=== PATIENT | male | born 1985 | race Caucasian/White ===

== ENCOUNTER 2021-01-20 06:18 | Inpatient (IN) | payer OTHER ==
[~2021-01-20] VITALS: Ht 177.8 cm; Wt 60.6 kg
[2021-01-20 06:30] LABS: Calcium, Ionized (POC) 0.99 mmol/L (1.10-1.46); Chloride (POC) 83 mmol/L (98-108); Glucose (ISTAT POC) >700 mg/dL (70-99); Hemoglobin (POC) 13.3 g/dL (13.5-17.5); Potassium (POC) 8.8 mmol/L (3.5-5.5); Sodium (POC) 106 mmol/L (135-148); Total CO2 (POC) 7 mmol/L (21-32)
[2021-01-20 06:53] LABS: Hematocrit 37.9 % (37.0-53.0); Hemoglobin 10.7 g/dL (13.5-17.5); Mean Corpuscular HGB Conc 28.2 g/dL (31.5-36.5); Mean Corpuscular Volume 110 fL (80-100); Mean Platelet Volume 10.4 fL (9.1-12.4); Platelet Count 509 K/mm3 (150-400); Red Blood Cell Count 3.45 M/mm3 (4.30-5.90); White Blood Cell Count 35.54 K/mm3 (4.00-11.30)
[2021-01-20 07:21] LABS: BAND PERCENT MAN 2 % (0-8); BASOPHILS PERCENT MAN 0 % (0-2); EOSINOPHILS PERCENT MAN 0 % (0-6); LYMPHOCYTES ABSOLUTE MAN 1.77 K/mm3 (0.84-5.20); LYMPHOCYTES PERCENT MAN 5 % (21-46); METAMYELOCYTE ABSOLUTE MAN 0.71 K/mm3 (0.00-0.00); METAMYELOCYTE PERCENT MAN 2 % (0-0); MONOCYTES ABSOLUTE MAN 0.35 K/mm3 (0.16-1.47); MONOCYTES PERCENT MAN 1 % (4-13); NEUTROPHILS ABSOLUTE MAN 32.69 K/mm3 (1.96-9.15); SEG NEUTROPHILS PERCENT MAN 90 % (41-73); TOTAL CELLS COUNTED 100
[2021-01-20 08:21] LABS: Glucose, Blood 1371 mg/dL (70-99)
[2021-01-20 08:21] LABS: Albumin, Blood 2.2 g/dL (3.4-5.0); Albumin/Globulin Ratio 0.6 (0.8-1.8); Bilirubin, Total 0.9 mg/dL (0.1-1.0); Bun/Creatinine Ratio 25.9 (12.0-20.0); Calcium, Blood 7.7 mg/dL (8.5-10.1); Creatinine, Blood 1.93 mg/dL (0.60-1.20); Potassium, Blood 6.9 mmol/L (3.5-5.5); Total Protein, Blood 6.2 g/dL (6.4-8.2)
[2021-01-20 08:26] LABS: Base Excess Venous -27.3 mmol/L; Bicarbonate Venous 6.9 mmol/L (24.0-30.0)
[2021-01-20 08:27] LABS: PCO2 Venous 22.8 mmHg (38-42); pH Blood Venous 6.94 (7.34-7.37)
[2021-01-20 09:46] LABS: Percent Saturation 9.3 % (20.0-50.0)
[2021-01-20 10:07] LABS: Source, Urine Voided
[2021-01-20 10:37] LABS: Appearance, Urine Clear (Clear); Bilirubin, Urine Neg (Neg); Blood, Urine 1+ (Neg); Color, Urine Yellow (P-Yellow); Glucose Qualitative, Urine 4+ (Neg); Ketones, Urine 3+ (Neg); Leukocyte Esterase, Urine Neg (Neg); Nitrite, Urine Neg (Neg); Protein, Urine 2+ (Neg); Specific Gravity, Urine 1.015 (1.003-1.022); Urobilinogen, Urine NORM (Normal)
[2021-01-20 11:03] LABS: Bacteria Not Seen /hpf; Red Blood Cells, Urine 0-2 /hpf (0-2); Squamous Epithelial Cells Rare /hpf (Few); White Blood Cells, Urine Not Seen /hpf (0-5)
[2021-01-20 11:22] LABS: Hematocrit 28.7 % (37.0-53.0); Hemoglobin 9.8 g/dL (13.5-17.5)
[2021-01-20 11:25] LABS: Glucose, Blood 1029 mg/dL (70-99)
[2021-01-20 11:57] LABS: Bun/Creatinine Ratio 27.3 (12.0-20.0); Calcium, Blood 7.9 mg/dL (8.5-10.1); Creatinine, Blood 1.61 mg/dL (0.60-1.20)
[2021-01-20 12:37] LABS: U Amphetamine Screen DETECTED; U Barbituate Screen Not Detected; U Benzodiazapine Screen Not Detected; U Buprenorphine Screen Not Detected; U Cannabinoids Screen DETECTED; U Cocaine Screen Not Detected; U Methadone Screen Not Detected; U Methamphetamine Screen DETECTED; U Opiates Screen Not Detected; U Oxycodone Screen Not Detected; U Phencyclidine Screen Not Detected; U Propoxyphene Screen Not Detected
[2021-01-20] MEDS ORDERED: INSULANI SC (13:42)
[2021-01-20] MEDS ORDERED: HUMALOG KW100 UNIT/1 SC (13:43)
[2021-01-20 13:53] LABS: Adenovirus Not Detected (NOT DETECT); Bordetella pertussis Not Detected (NOT DETECT); Chlamydophila pneumoniae Not Detected (NOT DETECT); Coronavirus 229E Not Detected (NOT DETECT); Coronavirus HKU1 Not Detected (NOT DETECT); Coronavirus NL63 Not Detected (NOT DETECT); Coronavirus OC43 Not Detected (NOT DETECT); Human Metapneumovirus Not Detected (NOT DETECT); Human Rhinovirus/Enterovirus Not Detected (NOT DETECT); Influenza A/2009-H1 Not Detected (NOT DETECT); Influenza A/H1 Not Detected (NOT DETECT); Influenza A/H3 Not Detected (NOT DETECT); Influenza B Not Detected (NOT DETECT); Mycoplasma pneumoniae Not Detected (NOT DETECT); Parainfluenza Virus 1 Not Detected (NOT DETECT); Parainfluenza Virus 2 Not Detected (NOT DETECT); Parainfluenza Virus 3 Not Detected (NOT DETECT); Parainfluenza Virus 4 Not Detected (NOT DETECT); Respiratory Syncytial Virus Not Detected (NOT DETECT); SARS-Cov-2 (COVID-19), BioFire Not Detected (NOT DETECT)
--- NOTE | 2021-01-20 14:15 | NUR ---
ASSUMED CARE OF PT PT ARRIVES FROM ED. ABLE TO TRANSFER SELF ON TO ICU BED. WEIGHT OBTAINED. PT CURRENTLY ON RA. PT DENIES PAIN UPON ARRIVAL. HARSH PRODUCTIVE COUGH AND DRY HEAVING NOTED. PT. RESTLESS IN BED. DENIES PAIN AT THIS TIME. PT. PULLS BLANKETS OVER HIS HEAD AND ONLY ANSWERING MINIMAL QUESTIONS. REFUSING TO ANSWER MEDICAL HISTORY QUESTIONS. INSULIN GTT INFUSING AT 7U/HR UPON ARRIVAL. BG CHECKED AND INSULIN TITRATED DOWN TO 3U/HR. PT. HAS NS INFUSING AT 350 ML/HR. EMEIS BAG PROVIDED. PT. CALL LIGHT IN REACH, BED IN LOW POSITION. ASKED PT TO CALL BEFORE ATTEMPTING TO GET OOB DUE TO CORDS ADN LINES.
[2021-01-20 15:34] LABS: Anion Gap 9 mmol/L (6-16); Blood Urea Nitrogen 38 mg/dL (8-24); Bun/Creatinine Ratio 29.2 (12.0-20.0); CO2, Blood 22 mmol/L (21-32); Calcium, Blood 7.8 mg/dL (8.5-10.1); Chloride, Blood 106 mmol/L (98-108); Glomerular Filtration Rate >60 (60-); Glucose, Blood 325 mg/dL (70-99); Potassium, Blood 4.4 mmol/L (3.5-5.5); Sodium, Blood 137 mmol/L (136-145)
--- NOTE | 2021-01-20 16:09 | NUR ---
DR. WILDER IN TO EVAL PT. PLANS TO TRANSITION PT TO SUB Q INSULIN. PT. STILL ONLY ANSWERING SOME QUESTIONS AND COVERS FACE WITH BLANKETS. VSS.
--- NOTE | 2021-01-20 16:36 | NUR ---
PT ONLY WAKING BRIEFLY TO ANSWER QUESTIONS WITH 1-2 WORD ANSWERS AND GOING BACK TO SLEEP. TURKEY SANDWHICH PROVIDED FOR PT PER REQUEST, BUT PT REFUSING TO EAT AT THIS TIME. PT. REMAINS ON INSULIN GTT, TRANSITIONED FLUIDS TO D5 1/2 NS AT 150ML/HR UNTIL PT EATING. VSS.
--- NOTE | 2021-01-20 18:24 | NUR ---
PT FRANTIC IN BED PULLING AT CORDS AND LINES, CRYING, STATING "I HAVE TO PEE NOW AND DONT WANT TO PEE MY PANTS", ASSISTED PT TO BEDSIDE TO VOID USING URINAL. PT ASSISTED BACK TO BED, STATES, "I DONT WANT TO EAT, IM NOT HUNGRY". ENCOURAGED PT TO EAT, SET PT TRAY UP AND PT FOUND SOME ALTERNATIVES PT WILLING TO EAT. LONG ACTING INSULIN TO BE GIVEN IF PT EATS AND TRANSITIONED OFF OF INSULIN GTT.
--- NOTE | 2021-01-20 18:43 | NUR ---
SHIFT SUMMARY PT. REMAINS ON INSULIN GTT AT THIS TIME. TITRATED PER. ORDER. PT. GAP CLOSED AND PT REFUSING TO EAT AT THIS TIME. D5 1/2 NS STARTED. LONG ACTING INSULIN AND MED SS COVERAGE ORDERED FOR WHEN PT IS ABLE TO EAT. PT COVERS HEAD WITH BLANKETS AND GOES TO SLEEP. VSS. CALL LIGHT IN REACH.
[2021-01-20 19:33] LABS: Anion Gap 7 mmol/L (6-16); Blood Urea Nitrogen 30 mg/dL (8-24); Bun/Creatinine Ratio 29.4 (12.0-20.0); CO2, Blood 25 mmol/L (21-32); Calcium, Blood 7.9 mg/dL (8.5-10.1); Chloride, Blood 109 mmol/L (98-108); Creatinine, Blood 1.02 mg/dL (0.60-1.20); Glomerular Filtration Rate >60 (60-); Glucose, Blood 241 mg/dL (70-99); Potassium, Blood 4.5 mmol/L (3.5-5.5); Sodium, Blood 141 mmol/L (136-145)
--- NOTE | 2021-01-20 20:00 | NUR ---
ASSESSMENT/ASSUMED CARE PT LAYING IN BED WITH BLANKET OVER HEAD. UNCOVERED HEAD AND ANSWERING QUESTIONS BRIEFLY. COVERS HEAED BACK UP AFTER ASSESSMENT. DENIES PAIN. LUNGS CLEAR DECREASED IN TH BASES ON ROOMAIR. RESP EVEN AND NONLABORED. DENIES SOB OR COUGH. HEART RATE TACHY IN THE LOW 100'S. BP STABLE. BT+. DINNER TRAY AT BEDSIDE. PT STATES,"I'M GOING TO EAT IT BUT NOT RIGHT NOW". DENIES N/V. IV 20G TO RIGHT FOREARM AND LEFT FOREARM WITH D5 1/2 NS AT 150 ML/HR AND INSULIN AT 2 UNITS/HR. BLOOD GLUCOSE 239. NO EDEMA. PT MOVING SELF AROUND IN BED.
[2021-01-20] MEDS ORDERED: ALBU90OI INH (21:00)
--- NOTE | 2021-01-20 21:09 | NUR ---
CALL TO MD CALL OUT TO DR PAYTON REGARDING COUGH AND PAIN TO CHEST WITH COUGH. PT REQUESTING ALBUTEROL INLH, RT GAVE. TEMP DOWN 99.2. PT EATING SANDWICH.
--- NOTE | 2021-01-20 21:30 | NUR ---
LONG ACTING INSULIN PT ATE ONE SANDWICH AND IS WORKING ON SECOND. BLOOD GLUCOSE 216, 35 UNITS LONG ACTING INSULIN GIVEN. CONT INSULIN GTT FOR NEXT TWO HOURS THAN STOP INSULIN.
--- NOTE | 2021-01-20 23:36 | NUR ---
REASSESSMENT PT RESTING QUIELTY. MOVING AND TURNING SELF IN BED. TEMP 99.3. LUNGS CLEAR BUT DECREASED ON ROOMAIR. NO COUGH AFTER GUAIFENESIN GIVEN. HEART RATE CONT LOW 100'S. BLOOD GLUCOSE 144. STOPPED INSULIN GTT AND D5 1/2. IV'S SALINE LOCKED. VSS. PT TO CHANGE TO MEDICAL FLOOR STATUS.
[2021-01-21 03:12] LABS: BASOPHILS ABSOLUTE AUTO 0.08 K/mm3 (0.00-0.23); BASOPHILS PERCENT AUTO 0 % (0-2); EOSINOPHILS ABSOLUTE AUTO 0.07 K/mm3 (0.00-0.68); EOSINOPHILS PERCENT AUTO 0 % (0-6); Hematocrit 31.7 % (37.0-53.0); Hemoglobin 10.9 g/dL (13.5-17.5); IMMATURE GRAN ABSOLUTE AUTO 0.24 K/mm3 (0.00-0.10); IMMATURE GRAN PERCENT AUTO 1 % (0-1); LYMPHOCYTES ABSOLUTE AUTO 2.17 K/mm3 (0.84-5.20); LYMPHOCYTES PERCENT AUTO 9 % (21-46); MONOCYTES ABSOLUTE AUTO 1.43 K/mm3 (0.16-1.47); MONOCYTES PERCENT AUTO 6 % (4-13); Mean Corpuscular HGB 30.2 pg (26.0-34.0); Mean Corpuscular HGB Conc 34.4 g/dL (31.5-36.5); Mean Platelet Volume 8.6 fL (9.1-12.4); NEUTROPHILS ABSOLUTE AUTO 19.64 K/mm3 (1.96-9.15); NEUTROPHILS PERCENT AUTO 83 % (41-73); Platelet Count 419 K/mm3 (150-400); RDW Standard Deviation 38.5 fL (35.1-46.3); Red Blood Cell Count 3.61 M/mm3 (4.30-5.90); White Blood Cell Count 23.63 K/mm3 (4.00-11.30)
[2021-01-21 03:15] LABS: Mean Corpuscular Volume 88 fL (80-100)
[2021-01-21 03:40] LABS: Alanine Aminotransfer (ALT/SGP 53 U/L (12-78); Albumin, Blood 2.1 g/dL (3.4-5.0); Albumin/Globulin Ratio 0.6 (0.8-1.8); Alk Phos 164 U/L (50-136); Anion Gap 6 mmol/L (6-16); Aspartate Aminotrans (AST/SGOT 38 U/L (12-37); Bilirubin, Total 0.2 mg/dL (0.1-1.0); Blood Urea Nitrogen 25 mg/dL (8-24); Bun/Creatinine Ratio 25.1 (12.0-20.0); CO2, Blood 25 mmol/L (21-32); Calcium, Blood 7.8 mg/dL (8.5-10.1); Chloride, Blood 110 mmol/L (98-108); Globulin, Blood 3.6 g/dL (2.2-4.0); Glomerular Filtration Rate >60 (60-); Glucose, Blood 267 mg/dL (70-99); Sodium, Blood 141 mmol/L (136-145); Total Protein, Blood 5.7 g/dL (6.4-8.2)
--- NOTE | 2021-01-21 03:55 | NUR ---
CALL TO MD CALL TO DR CM WITH PHOS 2.0, OBTAINED ORDER FOR SODIUM PHOS 10 MMOL IV TIMES ONE.
--- NOTE | 2021-01-21 06:06 | NUR ---
SHIFT SUMMARY PT RESTING QUIELTY. PT ATE LAST NIGHT AND WAS ABLE TO TAKE LONG ACTING INSULIN. INSULIN GTT STOP 2 HOURS AFTER LONG ACTING INSULIN ALONG WITH D5 1/2. TEMP 100.2 DURING THE NIGHT PT MED WITH TYLENOL WITH GOOD RESULTS. VSS. PT UP TO SHOWER DURING THE NIGHT. GAIT STEADY. MED WITH GUAIFENESIN WITH CODIENE FOR COUGH WITH GOOD RESULTS. CHANGED TO MEDICAL FLOOR STATUS. REPLACEMENT OF SODIUM PHOS INFUSING. REPORT TO ON COMING NURSE
--- NOTE | 2021-01-21 08:28 | NUR ---
ASSUMED CARE PT. ALERT AND ORIENTED THIS AM. SITTING UP IN BED EATING BREAKFAST. PT. DENIES PAIN THIS AM, HOWEVER REQUESTED MEDICATION FOR COUGH. PT CONTINUES WITH HARSH PRODUCTIVE COUGH. ON RA THIS AM. DR. WILDER AT BEDSIDE THIS AM. PLANS TO CONTINUE IV ANTIBIOTICS TODAY THEN HOME TOMORROW. PT. COOPERATIVE WITH CARE AT THIS TIME. NADN. DUMONT.
--- NOTE | 2021-01-21 12:26 | NUR ---
PT UP IN ROOM AD BRENNA. VSS. PT ON PHONE W/ FAMILY T/O DAY. INDEPENDENT IN ROOM.
--- NOTE | 2021-01-21 17:22 | NUR ---
SHIFT SUMMARY PT. REMAINS ALERT AND ORIENTED AND INDEPENDENT IN ROOM. UP AD BRENNA. PT. RESTLESS IN ROOM. PULLING OUT COT IN ROOM AND LAYING ON THAT WATCHING TV. PT. SNACKING FREQUENTLY T/O DAY WITH [facility] AT [employer]. PLAN CONTINUES TO BE DISCHARGE TOMORROW. VSS. MORALEZN. USES CALL LIGHT APPROPRIATELY. REPORT TO ONCOMING RN.
--- NOTE | 2021-01-21 21:37 | NUR ---
RECEIVED PT FROM MICHELLE KAUR. HE WAS SLEEPING AT THE BEDSIDE REPORT. HE AWAKENED FOR VITALS AND ASSESSMENT, ASKING FOR SANDWICH, CUP OF ICE, REQUESTING TO TAKE A SHOWER. UP TO SHOWER, INDEPENDENTLY, DID WELL. REQUESTED ATTENDS, PAPER SCRUB PANTS. CONTINUES INDEPENDENT IN ROOM, HAD ANOTHER HALF SANDWICH. MEDS GIVEN. NO COMPLAINTS.
--- NOTE | 2021-01-22 01:09 | NUR ---
PT AWAKENS AND CALLS FOR NURSE, ASKS FOR BLOOD SUGAR TO BE TESTED. SUGAR COMES BACK AT 27. ORANGE JUICE AND DELVIN CRACKERS W/PEANUT BUTTER GIVEN. ALL PER HIS REQUEST. PT DIAPHORETIC, BUT NO OTHER VISIBLE SIGNS. HE IS SPEAKING AP- PROPRIATELY, NOT SHAKING. TAKING IN THE PO WELL AND WITHOUT INCIDENT.
--- NOTE | 2021-01-22 01:33 | NUR ---
ON RECHECK, BLOOD SUGAR UP TO 54. PT STATES HE FEELS LIKE IT IS COMING UP, HE BEGINS TO SHIVER AND FEEL COLD. WARM BLANKETS GIVEN, PT CURLS UP IN A BALL ON THE COT, COVERS HIS HEAD AND LAYS IN POSITION. STATES HE IS DOING FINE NOW AND WILL ALERT ME IF HE HAS ANY CONCERNS. WILL CONTINUE TO CHECK ON HIM.
--- NOTE | 2021-01-22 03:20 | NUR ---
PT AWAKE, BLOOD SUGAR CHECKED, RESULT 117. PT REQUESTED SANDWICH, GIVEN, WITH CHEESE. STATES FEELING GOOD. NO COMPLAINTS.
[2021-01-22 03:38] LABS: Hematocrit 29.4 % (37.0-53.0); Mean Corpuscular Volume 91 fL (80-100); Mean Platelet Volume 8.6 fL (9.1-12.4); Platelet Count 330 K/mm3 (150-400); RDW Coefficient Variation 12.5 % (11.7-14.2); RDW Standard Deviation 41.6 fL (35.1-46.3); Red Blood Cell Count 3.23 M/mm3 (4.30-5.90); White Blood Cell Count 11.42 K/mm3 (4.00-11.30)
[2021-01-22 04:26] LABS: Anion Gap 9 mmol/L (6-16); Blood Urea Nitrogen 13 mg/dL (8-24); Bun/Creatinine Ratio 18.1 (12.0-20.0); CO2, Blood 28 mmol/L (21-32); Calcium, Blood 7.9 mg/dL (8.5-10.1); Chloride, Blood 108 mmol/L (98-108); Creatinine, Blood 0.72 mg/dL (0.60-1.20); Glomerular Filtration Rate >60 (60-); Glucose, Blood 122 mg/dL (70-99); Potassium, Blood 4.5 mmol/L (3.5-5.5); Sodium, Blood 145 mmol/L (136-145)
--- NOTE | 2021-01-22 05:43 | NUR ---
AMANDA IS UP AND ABOUT IN HIS ROOM, HE DENIES ANY COMPLAINTS AT THIS TIME. HE IS WATCHING VIDEOS ON HIS PHONE, TALKING ABOUT BEING DISCHARGED TODAY. HE IS EXCITED FOR IT. HIS BLOOD PRESSURE REMAINS ELEVATED, HE STATES HE DOESN'T LIKE TO TAKE THE MEDICATION FOR IT BECAUSE IT MAKES HIM FEEL WEIRD. OTHER VS STABLE. WILL REPORT TO DAY SHIFT WHEN ABLE. CONTINUE TO MONITOR.
--- NOTE | 2021-01-22 07:01 | NUR ---
AMANDA CALLED ME IN THE ROOM TO CHECK HIS SUGAR, GLUCOSE WAS 41. ORANGE JUICE, ROOT BEER, SPRITE, GIVEN. PT LIGHTHEADED, ENCOURAGED TO BE STILL UNTIL HIS SUGAR INCREASES. WILL RECHECK IN 10".
--- NOTE | 2021-01-22 07:30 | NUR ---
ASSUMED CARE: PT SITTING UP IN CHAIR AT THIS TIME. NIGHT RN CHECKED CBG AND PROVIDED SNACKS. PT DENIES NEEDS OR CONCERNS AT THIS TIME.
[2021-01-22] MEDS ORDERED: LEVFLO500 PO (12:12)
--- NOTE | 2021-01-22 12:39 | NUR ---
DISCHARGE INSTRUCTIONS GIVEN REGARDING PCP AND MEDICATIONS. MED LIST FAXED TO [facility]. PT AWARE THAT HE NEEDS TO ESTABLISH A PCP AND DID NOT FEEL HE NEEDED FURTHER RESOURCES BECAUSE HE KNEW WHO TO CONTACT. IV DC'D WNL. PT AMBULATORY UPON DISCHARGE
== END 2021-01-22 12:37 | disposition home or self-care (01) | DRG 871 ==
LOC: ER 06:18 → ERHOLD 09:06 → ICUE 13:19
PROVIDERS: Emergency Medicine; Nurse Practitioner Acute Care; ADMIT Internal Medicine
DX: A41.9 Sepsis, unspecified organism (principal); E10.10 Type 1 diabetes mellitus with ketoacidosis without coma; J18.9 Pneumonia, unspecified organism; N17.9 Acute kidney failure, unspecified; F15.10 Other stimulant abuse, uncomplicated; Z20.822 Contact with and (suspected) exposure to COVID-19; Z88.8 Allergy status to other drugs, medicaments and biological substances; J44.9 Chronic obstructive pulmonary disease, unspecified; I73.9 Peripheral vascular disease, unspecified; Z91.14 Patient's other noncompliance with medication regimen; Z98.890 Other specified postprocedural states; F17.210 Nicotine dependence, cigarettes, uncomplicated; Z88.2 Allergy status to sulfonamides; R65.20 Severe sepsis without septic shock; E87.5 Hyperkalemia; E86.0 Dehydration
CPT/HCPCS: 0202U; 36415; 71045; 80047; 80048; 80053; 81001; 82010; 82607; 82728; 82746; 82803; 82947; 83036; 83540; 83550; 83605; 83735; 84100; 84145; 85014; 85018; 85025; 85027; 86850; 86900; 86901; 87040; 93005; 93010; 94640; 94664; 96365; 96375; 96376; 99285-25; A9270; J0456; J0610; J0696; J1650; J1815; J7030; J7042; J7050; J7060